=== PATIENT | female | born 1965 | race Caucasian/White ===

== ENCOUNTER → 2020-04-15 10:32 | Outpatient (BNVA) | payer OTHER, SELFPAY | PROVIDERS: PCP Internal Medicine; Visit Provider Surgery | DX: Z76.89 Persons encountering health services in other specified circumstances (principal) ==

== ENCOUNTER 2021-03-31 19:47 | Emergency (ER) | payer OTHER, SELFPAY ==
[2021-03-31 20:23] VITALS: BP 93/61; PULSE 82; RESP 18; TEMP 37.6; O2SAT 98; BMI 20.9
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
[2021-03-31] MEDS: Ondansetron ODT 4 MG TAB.RAPDIS TRANSLINGU (22:51)
[2021-03-31] MEDS: predniSONE 20 MG TABLET 60 MG PO (22:51)
== END 2021-03-31 22:51 | disposition home or self-care (01) ==
PROVIDERS: Emergency Provider Emergency Medicine; PCP Internal Medicine
DX: U07.1 COVID-19 (principal); J45.901 Unspecified asthma with (acute) exacerbation; R06.00 Dyspnea, unspecified; Z79.899 Other long term (current) drug therapy
CPT/HCPCS: 99282; 99283

== ENCOUNTER 2021-04-03 19:54 | Inpatient (IN) | payer OTHER, SELFPAY ==
--- NOTE | ~2021-04-03 | CT_ITS ---
EXAMINATION: CT ANGIOGRAM OF THE CHEST WITH AND WITHOUT CONTRAST (CT PULMONARY ANGIOGRAM FOR PE) CLINICAL INFORMATION: Reason for Exam Hypxia, hemoptysis, covid patient COMPARISON: Radiograph 04/03/2021 TECHNIQUE: Prior to contrast administration, noncontrast localization images were obtained. Subsequently, multidetector volumetric imaging was performed from the thoracic inlet to below the diaphragms following the administration of 65 mL Omnipaque 350 intravenous contrast. No contrast reaction reported Sagittal, coronal, and MIP oblique sagittal reformatted images were obtained on the CT workstation, uploaded to PACS, and reviewed. This CT examination was performed using dose optimization techniques as appropriate, variously including the following: *Automated exposure control *Adjustment of mA and/or kV according to patient size (this includes techniques or standardized protocols for targeted exams where dose is matched to indication/reason for exam; i.e. extremities or head) *Use of iterative reconstruction technique Total exam dose-length product 185 mGy-cm FINDINGS: QUALITY OF STUDY/CONTRAST BOLUS: Satisfactory. PULMONARY ARTERIES: No central or segmental pulmonary emboli. THORACIC AORTA: No aneurysm or dissection. LUNG: The central airways are patent. Multifocal diffuse bilateral groundglass and consolidative opacities with peripheral distribution. PLEURA: No pleural effusion or pneumothorax. MEDIASTINUM: Normal heart size. No pericardial effusion. No hilar or mediastinal lymphadenopathy. No evidence of septal bowing or right heart strain. CHEST WALL/AXILLA: No axillary or internal mammary lymphadenopathy. OSSEOUS STRUCTURES: No acute or suspicious osseous abnormality. Mild degenerative changes in the spine. UPPER ABDOMEN: Hepatic cysts are noted. No reflux of contrast into the hepatic veins to suggest elevated right heart pressures. CT/CT angio chest PE protocol IMPRESSION: No pulmonary embolism. Commonly reported imaging features of (COVID-19 or viral) pneumonia are present. Other processes such as influenza pneumonia and organizing pneumonia, as can be seen with drug toxicity and connective tissue disease, can cause a similar imaging pattern. VTE: negative
--- NOTE | ~2021-04-03 | XR_ITS ---
EXAMINATION: XR CHEST CLINICAL INFORMATION: Cough COMPARISON: None TECHNIQUE: Frontal view of the chest was obtained. FINDINGS: There is opacity bilaterally. Right mid to lower lung zone and left mid to lower lung zones. Mild left upper lung zone opacity. There is no effusion. The cardiac silhouette is within normal limits. XR/XR chest 1V IMPRESSION: Bilateral opacities consistent with infiltrates
[2021-04-03 20:25] VITALS: BP 112/67; PULSE 73; RESP 19; TEMP 36.8; O2SAT 91; BMI 20.9
[2021-04-03 20:31] VITALS: BP 112/67; PULSE 69; RESP 22; TEMP 36.8; O2SAT 91
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
[2021-04-03 21:06] VITALS: O2SAT 91
[2021-04-03 21:08] LABS: Hemoglobin 11.8 g/dl (12.0-16.0); Imm Gran Abs Auto 0.03 X10*3/uL (0.00-0.03); Imm Gran Pct Auto 0.6 % (0.0-0.4); Lymphocytes Absolute Auto 0.3 X10*3/uL (1.2-4.9); Lymphocytes Percent Auto 6.5 % (20-40); MANUAL DIFF FLAG SCAN; Mean Corpuscular HGB Conc 33.7 g/dl (31.0-35.0); Mean Corpuscular Hemoglobin 31.1 pg (27.0-33.0); Mean Corpuscular Volume 92.1 fL (80-98); Mean Platelet Volume 8.8 fL (9.4-12.3); Monocytes Absolute Auto 0.1 X10*3/uL (0.1-1.2); Monocytes Percent Auto 2.8 % (2-11); Neutrophils Absolute Auto 4.6 X10*3/uL (2.0-8.3); Neutrophils Percent Auto 90.1 % (45-73); Platelet Count 172 X10*3/uL (160-400); Red Cell Distribution Width 13.2 % (11.0-16.0); SCAN SMEAR FLAG 1; White Blood Count 5.1 X10*3/uL (4.8-10.8)
[2021-04-03 21:17] LABS: D Dimer 473 NG/ML
[2021-04-03 21:19] LABS: COVID-19 Test Positive (Negative)
[2021-04-03] MEDS: 0.9 % Sodium Chloride 1,000 ML 999 ML IV (21:30)
[2021-04-03] MEDS: dexAMETHasone sod phosphate 10 MG/ML VIAL IVPUSH (21:30)
[2021-04-03 21:35] LABS: SLIDE REVIEW VERIFIED
[2021-04-03 22:00] VITALS: BP 105/71; PULSE 65; RESP 16; TEMP 36.9; O2SAT 95
[2021-04-03 23:15] VITALS: BP 107/74; PULSE 66; RESP 20; TEMP 36.8; O2SAT 92
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
[2021-04-03 23:55] VITALS: BP 113/72; PULSE 61; RESP 16; TEMP 36.7; O2SAT 95
[2021-04-04] VITALS (13 sets, daily range): BP systolic 104–145; BP diastolic 64–79; PULSE 55–89; RESP 16–24; TEMP 36.1–37.1; O2SAT 84–97
[2021-04-04 00:51] LABS: Anion Gap 11 (12-20); Blood Urea Nitrogen 12 mg/dL (9-16); Calcium 8.2 mg/dL (8.4-10.2); Carbon Dioxide 24 mmol/L (22-29); Chloride 106 mmol/L (96-108); Estimated Glomerular Filt Rate > 60; Glucose Random 134 mg/dL (60-115); Potassium 4.8 mmol/L (3.3-5.1); Sodium 136 mmol/L (135-145)
[2021-04-04] MEDS: iohexoL 350 MG/ML 100 ML INFUS..BTL 65 ML IV (02:18)
[2021-04-04] MEDS: guaiFENesin 100 MG/5 ML LIQUID PO (08:05)
[2021-04-04] MEDS: 0.9 % Sodium Chloride Flush 3 ML SYRINGE IVFLUSH ×3 (08:05→20:42)
[2021-04-04] MEDS: Famotidine 20 MG TABLET 40 MG PO ×2 (08:05→20:42)
[2021-04-04] MEDS: dexAMETHasone sod phosphate 4 MG/ML VIAL 6 MG IVPUSH (08:05)
--- NOTE | 2021-04-04 08:16 | PC.NURSE ---
Pt moved around in bed, prev on 2L NC, desat to 84% with SOB. Placed on NrB 100%, now satting 94%. Will reassess.
[2021-04-04 09:08] LABS: VBG Base Excess 1.9 mmol/L; VBG HCO3 26 mmol/L (22-26); VBG pCO2 39 mmHg; VBG pH 7.42 (7.32-7.43); VBG pO2 61 mmHg
[2021-04-04 09:10] LABS: Venous Blood Gas Refer to POC result
[2021-04-04 09:16] LABS: Lactate Dehydrogenase 330 U/L (122-220)
[2021-04-04] MEDS: Ascorbic Acid 500 MG TABLET 1000 MG PO (09:24)
[2021-04-04] MEDS: Cholecalciferol (Vitamin D3) 25 MCG TABLET 50 MCG PO (09:24)
--- NOTE | 2021-04-04 09:34 | PC.NURSE ---
Addendum entered by Louisa Gibson RN 04/04/21 15:15: Patient seen by respiratory; placed on Venti mask 55% 14L. Patient tolerated well. Currently satting 93%. Original Note: Patient changed from 100% NRB to 5L NC with capnography. Currently 90% w/o c/o SOB. Will continue to monitor.
[2021-04-04 09:38] LABS: Ferritin 915 ng/mL (10-250)
--- NOTE | 2021-04-04 11:46 | P.PNIM_ITS ---
Progress Note: A&P (1) Hemoptysis: Status: Acute (2) Acute respiratory failure due to severe acute respiratory syndrome coronavirus 2 (SARS-CoV-2) infection: Status: Acute Assessment and Plan: 55-year-old woman admitted with severe acute respiratory failure secondary to COVID-19. She is unvaccinated. Acute respiratory failure secondary to COVID-19. On 100% non-rebreather with oxygen saturation ranging from 92-97% Elevated inflammatory markers, trend Stable VBG Decadron, vitamin-C, vitamin-D, Pepcid Albuterol inhaler as needed No further episodes of hemoptysis DVT prophylaxis with Lovenox Attending Dr. Peters Full code Subjective Subjective Date of Service: 04/04/21 Review of Systems follow-up COVID-19 No further hemoptysis Some shortness of breath but improved Physical Exam Vital Signs: Vital Signs: Last Vital Signs Temp 98.7 F 04/04/21 07:42 Pulse 55 04/04/21 11:31 Resp 16 04/04/21 11:31 BP 145/75 H 04/04/21 11:31 Pulse Ox 97 04/04/21 11:31 Body Mass Index 20.9 Appearing in no acute distress lung sounds normal expansion heart regular rate rhythm, clear S1, S2 positive bowel sounds, abdomen is soft, nontender neuro patient is alert x3, no focal deficits Objective Data Current Medications Acetaminophen (Acetaminophen 325 Mg Tablet) 650 mg PO Q6H PRN PRN Reason: Pain, Mild (Pain Scale 1-3) Ascorbic Acid (Ascorbic Acid 500 Mg Tablet) 1,000 mg PO DAILY [facility] Last Admin: 04/04/21 09:24 Dose: 1,000 mg Documented by: Dexamethasone Sodium Phosphate (Dexamethasone Sod Phosphate 4 Mg/Ml Vial) 6 mg IVPUSH DAILY [facility] Last Admin: 04/04/21 08:05 Dose: 6 mg Documented by: Famotidine (Famotidine 20 Mg Tablet) 40 mg PO BID [facility] Last Admin: 04/04/21 08:05 Dose: 40 mg Documented by: Guaifenesin (Guaifenesin 100 Mg/5 Ml Liquid) 5 ml PO Q4H PRN PRN Reason: Cough Last Admin: 04/04/21 08:05 Dose: 5 ml Documented by: Magnesium Hydroxide (Milk Of Magnesia 30 Ml Oral.Susp) 30 ml PO DAILY PRN PRN Reason: Constipation Melatonin (Melatonin 3 Mg Tablet) 6 mg PO BEDTIME PRN PRN Reason: Insomnia Ondansetron HCl (Ondansetron Hcl 4 Mg/2 Ml Vial) 4 mg IVPUSH Q8H PRN PRN Reason: Nausea and Vomiting Pharmacy Consult (Consult Rx Perform Med Rec) 1 each MISCELLANE ONCE PRN PRN Reason: Consult order Sodium Chloride (0.9 % Sodium Chloride Flush 3 Ml Syringe) 3 ml IVFLUSH QSHIFT [facility] Last Admin: 04/04/21 08:05 Dose: 3 ml Documented by: Vitamin D (Cholecalciferol (Vitamin D3) 25 Mcg Tablet) 50 mcg PO DAILY [facility] Last Admin: 04/04/21 09:24 Dose: 50 mcg Documented by: Labs CBC & Chem 7: 04/03/21 21:02 04/04/21 00:32 Labs: Laboratory Results - last 24 hr 04/03/21 04/03/21 04/03/21 21:02 21:02 21:02 MCV 92.1 MCH 31.1 MCHC 33.7 RDW 13.2 Plt Count 172 MPV 8.8 L Immature Gran % (Auto) 0.6 H Neut % (Auto) 90.1 H Lymph % (Auto) 6.5 L [place] % (Auto) 2.8 Eos % (Auto) 0.0 Baso % (Auto) 0.0 Lymph # (Auto) 0.3 L [place] # (Auto) 0.1 Eos # (Auto) 0.0 Baso # (Auto) 0.0 Abs Immat Gran (auto) 0.03 Absolute Neuts (auto) 4.6 Absolute Nucleated RBC 0.000 Nucleated RBC % (auto) 0.0 Smear Tech's Comments VERIFIED D-Dimer 473 VBG pH VBG pCO2 VBG pO2 VBG HCO3 VBG O2 Saturation VBG Base Excess Anion Gap Estim Creat Clear Calc Estimated GFR Random Glucose Calcium Ferritin Lactate Dehydrogenase COVID-19 (VALARIE) Positive A COVID-19 Clin Com See Note 04/04/21 04/04/21 04/04/21 00:32 08:56 09:03 MCV MCH MCHC RDW Plt Count MPV Immature Gran % (Auto) Neut % (Auto) Lymph % (Auto) [place] % (Auto) Eos % (Auto) Baso % (Auto) Lymph # (Auto) [place] # (Auto) Eos # (Auto) Baso # (Auto) Abs Immat Gran (auto) Absolute Neuts (auto) Absolute Nucleated RBC Nucleated RBC % (auto) Smear Tech's Comments D-Dimer VBG pH 7.42 VBG pCO2 39 VBG pO2 61 VBG HCO3 26 VBG O2 Saturation 88.0 VBG Base Excess 1.9 Anion Gap 11 L Estim Creat Clear Calc 78.0 Estimated GFR > 60 Random Glucose 134 H Calcium 8.2 L Ferritin 915 H Lactate Dehydrogenase 330 H COVID-19 (VALARIE) COVID-19 Clin Com Quality Stroke Does the patient have a stroke diagnosis?: No VTE Prior VTE?: No VTE Risk Level:: Medical - moderate - high VTE Device Contraindication: Treatment Not Indicated VTE Drug Contraindication: Treatment Not Tolerated
[2021-04-04] MEDS: Enoxaparin Sodium 40 MG/0.4 ML SYRINGE SUBCUT (12:02)
[2021-04-04] MEDS: Albuterol Sulfate 90 MCG 8 GM INHALER 2 PUFF INHALE ×3 (12:16→20:42)
--- NOTE | 2021-04-04 16:13 | MHC.CM.PN ---
CM UNABLE TO REACH PT IN HER ROOM ([facility]) CM CALLED PTS , [facility] ([phone]) WHO REPORTS THE PT IS FULLY INDEPENDENT AT BASELINE HE REPORTS PT WORKS AND DOES NOT USE DME OR HOME SERVICES HE DOES BELIEVE THEY HAVE COMPLETED HCPS AND CONFIRMS HER PCP IS WANDY LANGSTON CURRENT DC PLAN IS HOME WITH NO SERVICES TO TRANSPORT LATHA ALSO REQUESTED A MEDICAL UPDATE. MESSAGE RELAYED TO COVERING PROVIDER
[2021-04-05] VITALS (10 sets, daily range): BP systolic 107–143; BP diastolic 66–78; PULSE 57–80; RESP 17–20; TEMP 36.1–37.3; O2SAT 90–97
[2021-04-05] MEDS: Albuterol Sulfate 90 MCG 8 GM INHALER 2 PUFF INHALE ×4 (08:00→19:53)
[2021-04-05] MEDS: Ascorbic Acid 500 MG TABLET 1000 MG PO (09:53)
[2021-04-05] MEDS: Cholecalciferol (Vitamin D3) 25 MCG TABLET 50 MCG PO (09:53)
[2021-04-05] MEDS: Famotidine 20 MG TABLET 40 MG PO ×2 (09:53→20:59)
[2021-04-05] MEDS: 0.9 % Sodium Chloride Flush 3 ML SYRINGE IVFLUSH ×3 (09:54→21:01)
[2021-04-05] MEDS: dexAMETHasone sod phosphate 4 MG/ML VIAL 6 MG IVPUSH (09:54)
--- NOTE | 2021-04-05 11:11 | P.PNIM_ITS ---
Progress Note: A&P (1) Acute respiratory failure due to severe acute respiratory syndrome coronavirus 2 (SARS-CoV-2) infection: Status: Acute Assessment and Plan: 55-year-old woman admitted with severe acute respiratory failure secondary to COVID-19.? She is unvaccinated.? Acute respiratory failure secondary to COVID-19. On 6LNC with oxygen saturation ranging from 92-97% Elevated inflammatory markers, trend Stable VBG Decadron, vitamin-C, vitamin-D, Pepcid Albuterol inhaler as needed No further episodes of hemoptysis DVT prophylaxis with Lovenox Attending Dr. Peters Full code Subjective Subjective Date of Service: 04/05/21 Review of Systems Follow up covid 19 breathing is better she is OOB and ambulating in her room Denies chest pain, abdominal pain, nausea, vomiting, diarrhea All other systems reviewed are negative Physical Exam Vital Signs: Vital Signs: Last Vital Signs Temp 97.6 F 04/05/21 07:52 Pulse 68 04/05/21 08:02 Resp 17 04/05/21 07:52 BP 107/68 04/05/21 07:52 Pulse Ox 93 04/05/21 07:52 Body Mass Index 20.9 Appearing in no acute distress lungs normal expansion heart regular rate rhythm, clear S1, S2 positive bowel sounds, abdomen is soft, nontender neuro patient is alert x3, no focal deficits Objective Data Current Medications Acetaminophen (Acetaminophen 325 Mg Tablet) 650 mg PO Q6H PRN PRN Reason: Pain, Mild (Pain Scale 1-3) Albuterol Sulfate (Albuterol Sulfate 90 Mcg 8 Gm Inhaler) 2 puff INHALE QID [facility] Last Admin: 04/05/21 08:00 Dose: 2 puff Documented by: Ascorbic Acid (Ascorbic Acid 500 Mg Tablet) 1,000 mg PO DAILY [facility] Last Admin: 04/05/21 09:53 Dose: 1,000 mg Documented by: Dexamethasone Sodium Phosphate (Dexamethasone Sod Phosphate 4 Mg/Ml Vial) 6 mg IVPUSH DAILY [facility] Last Admin: 04/05/21 09:54 Dose: 6 mg Documented by: Enoxaparin Sodium (Enoxaparin Sodium 40 Mg/0.4 Ml Syringe) 40 mg SUBCUT Q24H [facility] Last Admin: 04/04/21 12:02 Dose: 40 mg Documented by: Famotidine (Famotidine 20 Mg Tablet) 40 mg PO BID [facility] Last Admin: 04/05/21 09:53 Dose: 40 mg Documented by: Guaifenesin (Guaifenesin 100 Mg/5 Ml Liquid) 5 ml PO Q4H PRN PRN Reason: Cough Last Admin: 04/04/21 08:05 Dose: 5 ml Documented by: Magnesium Hydroxide (Milk Of Magnesia 30 Ml Oral.Susp) 30 ml PO DAILY PRN PRN Reason: Constipation Melatonin (Melatonin 3 Mg Tablet) 6 mg PO BEDTIME PRN PRN Reason: Insomnia Ondansetron HCl (Ondansetron Hcl 4 Mg/2 Ml Vial) 4 mg IVPUSH Q8H PRN PRN Reason: Nausea and Vomiting Pharmacy Consult (Consult Rx Perform Med Rec) 1 each MISCELLANE ONCE PRN PRN Reason: Consult order Sodium Chloride (0.9 % Sodium Chloride Flush 3 Ml Syringe) 3 ml IVFLUSH QSHIFT [facility] Last Admin: 04/05/21 09:54 Dose: 3 ml Documented by: Vitamin D (Cholecalciferol (Vitamin D3) 25 Mcg Tablet) 50 mcg PO DAILY [facility] Last Admin: 04/05/21 09:53 Dose: 50 mcg Documented by: Labs CBC & Chem 7: 04/03/21 21:02 04/04/21 00:32 Quality Stroke Does the patient have a stroke diagnosis?: No VTE Prior VTE?: No VTE Risk Level:: Medical - moderate - high VTE Device Contraindication: Treatment Not Indicated VTE Drug Contraindication: N/A - Med Ordered
--- NOTE | 2021-04-05 13:15 | MHC.CM.PN ---
called and spoke with pt in covid unit pt reports being independent and mdriving she she lives with her dc plan is home mno services
[2021-04-06] VITALS (7 sets, daily range): BP systolic 97–109; BP diastolic 64–67; PULSE 49–75; RESP 17–20; TEMP 36.3–36.8; O2SAT 90–99
[2021-04-06 06:59] LABS: Hematocrit 37.8 % (37-47); Hemoglobin 12.9 g/dl (12.0-16.0); Mean Corpuscular HGB Conc 34.1 g/dl (31.0-35.0); Mean Corpuscular Volume 90.9 fL (80-98); Mean Platelet Volume 8.3 fL (9.4-12.3); Platelet Count 328 X10*3/uL (160-400); Red Blood Count 4.16 X10*6/uL (4.20-5.50); Red Cell Distribution Width 12.8 % (11.0-16.0); White Blood Count 6.5 X10*3/uL (4.8-10.8)
[2021-04-06 07:14] LABS: Lactate Dehydrogenase 272 U/L (122-220)
[2021-04-06 07:28] LABS: Anion Gap 13 (12-20); Blood Urea Nitrogen 19 mg/dL (9-16); Calcium 9.1 mg/dL (8.4-10.2); Carbon Dioxide 27 mmol/L (22-29); Chloride 104 mmol/L (96-108); Estimated Glomerular Filt Rate > 60; Glucose Random 86 mg/dL (60-115); Potassium 4.8 mmol/L (3.3-5.1); Sodium 139 mmol/L (135-145)
[2021-04-06 07:38] LABS: Ferritin 772 ng/mL (10-250)
[2021-04-06] MEDS: Albuterol Sulfate 90 MCG 8 GM INHALER 2 PUFF INHALE ×2 (08:23→11:40)
[2021-04-06] MEDS: Famotidine 20 MG TABLET 40 MG PO (10:29)
[2021-04-06] MEDS: 0.9 % Sodium Chloride Flush 3 ML SYRINGE IVFLUSH (10:30)
[2021-04-06] MEDS: Ascorbic Acid 500 MG TABLET 1000 MG PO (10:30)
[2021-04-06] MEDS: dexAMETHasone sod phosphate 4 MG/ML VIAL 6 MG IVPUSH (10:30)
[2021-04-06] MEDS: Cholecalciferol (Vitamin D3) 25 MCG TABLET 50 MCG PO (10:30)
--- NOTE | 2021-04-06 12:13 | PM.DS ---
DS: Providers Provider Date of Service: 04/06/21 Date of admission: 04/03/21 23:55 Primary care physician: Morgan Shaw MD Attending physician on discharge: Ian Bacon Discharging clinician: Jo Curtis DS: Diagnosis Discharge Diagnosis (1) Acute respiratory failure due to severe acute respiratory syndrome coronavirus 2 (SARS-CoV-2) infection: Status: Acute DS: Summary Hospital Course Hospital Course: HP as per admitting provider 55-year-old female with no significant past medical history, and vaccinated for COVID-19 who presents to the emergency room with increasing shortness of breath and episode of hemoptysis.? She was diagnosed with COVID-19 on March 28, and she was having COVID-19 symptoms as early as March 25.? Her also has been diagnosed with the COVID-19.? She was recently seen in the ED bed because her symptoms were mild and she was not hypoxic she was discharged with prednisone albuterol.? Over the last tests 24-48 hours however she has been having increasing shortness of breath and have been coughing a lot with blood tinged sputum.? Her oxygen saturation is about 91% on room and upon ambulation it dropped to 87% and had difficulty breathing.? Checks x-ray show bilateral opacity consistent with infiltrates Acute respiratory failure secondary to covid 19. Treated with IV decadron, vitamin C, vitamin D, supplemental oxygen. She had home oxygen evaluation with recommendation for 2 L of home oxygen. She is safe for discharge today. Time Spent with Patient Time attestation: Total time spent providing and/or coordinating discharge services: Discharge coordination time: Greater than 30 minutes Quality: Stroke Does the patient have a stroke diagnosis?: No Physical Exam Vital Signs: Vital Signs: Last Vital Signs Temp 97.4 F 04/06/21 07:40 Pulse 75 04/06/21 11:49 Resp 20 04/06/21 07:40 BP 99/67 04/06/21 07:40 Pulse Ox 97 04/06/21 07:40 Body Mass Index 20.9 Appearing in no acute distress head is normocephalic atraumatic eyes pupils are PERRLA sclera is anicteric mouth throat mucous membranes are intact and moist neck is supple no lymphadenopathy, no JVD noted lung sounds are clear to auscultation heart regular rate rhythm, clear S1, S2 positive bowel sounds, abdomen is soft, nontender neuro patient is alert x3, no focal deficits DS: Data Data Completed and Pending Labs on day of discharge: Laboratory Results - last 24 hr 04/06/21 04/06/21 04/06/21 06:32 06:32 06:32 WBC 6.5 RBC 4.16 L Hgb 12.9 Hct 37.8 MCV 90.9 MCH 31.0 MCHC 34.1 RDW 12.8 Plt Count 328 D MPV 8.3 L Absolute Nucleated RBC 0.000 Nucleated RBC % (auto) 0.0 Sodium 139 Potassium 4.8 Chloride 104 Carbon Dioxide 27 Anion Gap 13 BUN 19 H D Creatinine 0.77 Estim Creat Clear Calc 75.0 Estimated GFR > 60 Random Glucose 86 Calcium 9.1 D Ferritin 772 H Lactate Dehydrogenase 272 H Discharge Plan Discharge Anticipated Discharge Date/Time: 04/06/21 12:10 Patient Disposition: Home, Self-Care Discharge Diagnosis: COVID-19 Referrals: Morgan Shaw MD [Primary Care Provider] - 1 Week Discharge Medications: New dexamethasone [Decadron] 6 mg tablet 6 mg PO DAILY Qty: 7 RF: 0 Continued albuterol sulfate 90 mcg/actuation HFA aerosol inhaler 2 puff inhalation QID Qty: 8.5 RF: 0 ondansetron HCl [Zofran] 4 mg tablet 4 mg PO Q6H Qty: 14 RF: 0 Discontinued prednisone 20 mg tablet 40 mg PO DAILY Qty: 10 RF: 0 Discharge Orders: Discharge Order (Routine); Ordered 04/06/21 Ordered By: Jo Curtis Diet: advance to usual diet Activity on Discharge: As tolerated Stand Alone Forms: Patient Portal Discharge page Care Plan Goals: complete resolution symptoms from COVID-19 Health Concerns: COVID-19 Plan of Treatment: You will be sent home on 2 L of oxygen Quarantine: According to the Centers for disease control. Persons with COVID-19 who have symptoms and were directed to care for themselves at home may discontinue isolation under the following conditions: -At least 10 days have passed since symptom onset and -At least 24 hours have passed since resolution of fever without the use of fever-reducing medications and -Other symptoms have improved. Safety: Wear a mask Wash your hands or use hand family preservation worker before putting on your mask. Wear your mask over your nose and mouth and secure it under your chin. Stay 6 feet away from others Inside your home: Avoid close contact with people who are sick. If possible, maintain 6 feet between the person who is sick and other household members. Outside your home: Put 6 feet of distance between yourself and people who don't live in your household. Remember that some people without symptoms may be able to spread virus. Stay at least 6 feet (about 2 arm lengths) from other people. Keeping distance from others is especially important for people who are at higher risk of getting very sick. Avoid crowds and poorly ventilated spaces Avoid indoor spaces that do not offer fresh air from the outdoors as much as possible. Wash your hands often with soap and water for at least 20 seconds especially after you have been in a public place, or after blowing your nose, coughing, or sneezing. Cover coughs and sneezes Clean high touch surfaces daily. Be alert for symptoms. Watch for fever, cough, shortness of breath, or other symptoms of COVID-19. Follow CDC guidance if symptoms develop. Assessment: see discharge summary
--- NOTE | 2021-04-06 12:33 | MHC.CM.PN ---
Female 55 DX Covid. She is discharged today to home with oxygen. She had a home o2 eval. She qualifies for home o2. Hailee will be provider. RT has set up [employer]. She has also provided a tank for transport. Patients is providing transportation.
[2021-04-06 13:51] LABS: CRP High Sensitivity >10.0 mg/L
== END 2021-04-06 14:00 | disposition home or self-care (01) | DRG 177 ==
LOC: HO.ED 20:24 → HO.EDOVER 04-04 00:27 → HO.IMC 04-04 15:11
PROVIDERS: Admitting Provider Internal Medicine; Emergency Provider Emergency Medicine Emergency Medical Services; PCP Internal Medicine; Visit Provider Nurse Practitioner Acute Care
DX: U07.1 COVID-19 (principal); J96.01 Acute respiratory failure with hypoxia; R04.2 Hemoptysis; Z79.899 Other long term (current) drug therapy
CPT/HCPCS: 36415; 71045; 71275; 80048; 82728; 82803; 83615; 85025; 85027; 85379; 86141; 87635; 94640; 99285; J1100; J1650; Q9967